=== PATIENT | female | born 1955 | race Caucasian/White ===

== ENCOUNTER → 2019-10-06 17:18 | Outpatient (CLI) | payer SELFPAY | PROVIDERS: PCP Family Medicine; Referring Provider Family Medicine; Visit Provider Family Medicine | DX: J02.9 Acute pharyngitis, unspecified (principal) | CPT/HCPCS: 87635; G2023; U0003 ==

== ENCOUNTER → 2022-06-23 | Outpatient (CLI) | payer OTHER, SELFPAY ==
[2022-06-30 15:35] LABS: HPV APTIMA, High Risk Negative (Negative)
== END | disposition home or self-care (01) ==
LOC: LABSPEC 16:18
PROVIDERS: PCP Family Medicine; Visit Provider Student in an Organized Health Care Education/Training Program
DX: Z12.4 Encounter for screening for malignant neoplasm of cervix (principal)
CPT/HCPCS: 87624; 88175; G0145